=== PATIENT | male | born 2000 ===

== ENCOUNTER 2022-06-03 15:18 | Emergency (ER) | payer OTHER ==
[~2022-06-03] VITALS: Ht 160 cm; Wt 68.6 kg
[2022-06-03 18:00] VITALS: BP 122/84; PULSE 74; TEMP 98.1
== END 2022-06-03 18:01 | disposition home or self-care (01) ==
LOC: COL.ER 15:18
DX: M75.22 Bicipital tendinitis, left shoulder (principal); M75.21 Bicipital tendinitis, right shoulder; F17.200 Nicotine dependence, unspecified, uncomplicated; Z28.310 Unvaccinated for COVID-19